=== PATIENT | female | born 1995 | race Asian ===

== ENCOUNTER 2024-10-06 14:46 | Emergency (ER) | payer OTHER ==
[~2024-10-06] VITALS: Ht 162.6 cm; Wt 64.0 kg
[2024-10-06 14:56] VITALS: O2SAT 99
[2024-10-06] MEDS ORDERED: ONDANSETRON 4MG ODT PO ONE (15:15)
[2024-10-06] MEDS: ONDANSETRON 4MG ODT PO NR (15:15)
[2024-10-06 16:22] LABS: BASOPHILS % 0.6 % (0.0-2.0); EOSINOPHILS % 1.9 % (0.0-5.0); HEMATOCRIT. 41.9 % (36.0-48.0); HEMOGLOBIN. 14.1 g/dL (12.0-16.0); LYMPHOCYTES % 25.6 % (20.0-50.0); MEAN PLATELET VOLUME 8.7 fl (7.4-10.4); MONOCYTES % 7.1 % (2.0-8.0); NEUTROPHILS % 64.8 % (40.0-76.0); PLATELET 308 x1000/uL (130-400); RED BLOOD CELL COUNT 4.66 mill/uL (4.2-5.4); RED CELL DISTRIBUTION WIDTH 13.6 % (11.6-14.6)
[2024-10-06 16:32] LABS: CREATININE 0.6 mg/dL (0.6-1.0); UREA NITROGEN BLOOD 8 mg/dL (9-23)
[2024-10-06 17:28] VITALS: BP 112/68; PULSE 67; RESP 16; TEMP 36.8; O2SAT 99
== END 2024-10-06 17:29 | disposition home or self-care (01) ==
LOC: ER 14:56
DX: F10.129 Alcohol abuse with intoxication, unspecified (principal); S09.8XXA Other specified injuries of head, initial encounter; R11.2 Nausea with vomiting, unspecified; R51.9 Headache, unspecified; I48.91 Unspecified atrial fibrillation; Z88.1 Allergy status to other antibiotic agents; X58.XXXA Exposure to other specified factors, initial encounter; Y93.89 Activity, other specified; Y92.89 Other specified places as the place of occurrence of the external cause; Y99.8 Other external cause status; Y90.9 Presence of alcohol in blood, level not specified
CPT/HCPCS: 99284; 70450; 80048; 85025; 36415; 93005; Q0162